=== PATIENT | male | born 1990 | race Caucasian/White ===

== ENCOUNTER 2020-05-17 10:03 | Emergency (ER) | payer BC | END 2020-05-17 10:51 | disposition home or self-care (01) | LOC: JVIRT 10:03 | DX: Z03.818 Encounter for observation for suspected exposure to other biological agents ruled out (principal) | CPT/HCPCS: C9803; G2012-GT; Q3014-GT; U0003 ==

== ENCOUNTER 2020-06-24 09:43 | Emergency (ER) | payer BC | END 2020-06-24 11:12 | disposition home or self-care (01) | LOC: JVIRT 09:43 | DX: Z11.52 Encounter for screening for COVID-19 (principal) | CPT/HCPCS: C9803; G2012-GT; U0003 ==